=== PATIENT | female | born 1940 | race Caucasian/White ===

== ENCOUNTER 2017-01-06 13:42 | Inpatient (IN) | payer MEDICARE, BC ==
[2017-01-06] MEDS ORDERED: ACETAMINOPHEN TAB 500 MG TAB PO STA (14:23)
[2017-01-06] MEDS ORDERED: PIPERACILLIN-TAZOBACTAM 3.375 GM in DEXTROSE/WATER 1 50ML.BAG IVPB STA (14:27)
--- NOTE | 2017-01-06 14:32 | ED ---
General Adult HPI - General Chief complaint: GI Bleed Stated complaint: GI BLEED Time Seen by Provider: 01/06/17 14:02 Source: patient, EMS, RN notes reviewed Mode of arrival: EMS Limitations: no limitations - History of Present Illness Initial comments: Patient is a pleasant 76-year-old female presenting to the emergency department with complaints of diarrhea. Patient was seen at [place] [facility]. Patient did have evaluation there. Patient was found to have GI bleed and hemoglobin of 7.6. Patient was given 1 unit. Computed tomography scan was done and reported no mass. Review of report has concern for colitis. Patient states she had nausea and vomiting for several days a week or 2 ago. This completely resolved. Patient has had extensive diarrhea for the past 4 days. Patient is fatigued and generally weak and is difficult to get up and perform activities of daily living. No significant abdominal pain. No nausea vomiting however patient has had limited oral intake. Patient has had chills however is unclear whether or not she could've had fevers. No reported fever from [facility]. - Related Data Home Medications Medication Instructions Recorded Confirmed Atorvastatin [Lipitor] 20 mg PO HS 01/06/17 01/06/17 Cetirizine HCl [Zyrtec] 10 mg PO HS 01/06/17 01/06/17 Glucosamine/Chondr [place] A Sod [Osteo 1 tab PO DAILY 01/06/17 01/06/17 Bi-Flex Caplet] HYDROcodone/APAP 5-325MG [[place] 1 tab PO Q6H PRN 01/06/17 01/06/17 5-325] Lisinopril [Zestril] 20 mg PO DAILY 01/06/17 01/06/17 Multivitamins, Thera [Multivitamin 1 tab PO DAILY 01/06/17 01/06/17 (formulary)] Omeprazole 20 mg PO DAILY 01/06/17 01/06/17 Triamterene/Hydrochlorothiazid 1 tab PO DAILY 01/06/17 01/06/17 [Triamterene-Hctz 37.5-25 mg Tb] Verapamil HCl [Verelan] 360 mg PO DAILY 01/06/17 01/06/17 Allergies Allergy/AdvReac Type Severity Reaction Status Date / Time No Known Allergies Allergy Unverified 01/06/17 14:32 Review of Systems ROS Statement: Those systems with pertinent positive or pertinent negative responses have been documented in the HPI. ROS Other: All systems not noted in ROS Statement are negative. Constitutional: Reports: chills Eyes: Denies: eye pain ENT: Denies: ear pain Respiratory: Denies: cough Cardiovascular: Denies: chest pain Endocrine: Reports: fatigue Gastrointestinal: Reports: diarrhea. Denies: abdominal pain Genitourinary: Denies: dysuria Musculoskeletal: Denies: back pain Skin: Denies: rash Neurological: Reports: weakness (Generalized) Past Medical History Past Medical History: Hyperlipidemia, Hypertension History of Any Multi-Drug Resistant Organisms: None Reported Past Surgical History: Orthopedic Surgery Past Psychological History: No Psychological Hx Reported Smoking Status: Never smoker Past Alcohol Use History: None Reported Past Drug Use History: None Reported General Exam Limitations: no limitations General appearance: alert, in no apparent distress Head exam: Present: atraumatic Eye exam: Present: normal appearance, PERRL ENT exam: Present: mucous membranes dry Neck exam: Present: normal inspection Respiratory exam: Present: normal lung sounds bilaterally Cardiovascular Exam: Present: tachycardia GI/Abdominal exam: Present: soft. Absent: distended, tenderness Extremities exam: Present: normal inspection Neurological exam: Present: alert Psychiatric exam: Present: normal affect, normal mood Skin exam: Present: normal color Course Vital Signs 01/06/17 13:45 Temperature 100.6 F H Pulse Rate 120 H Respiratory 22 Rate Blood Pressure 125/69 O2 Sat by Pulse 98 Oximetry - Reevaluation(s) Reevaluation #1: 01/06/17 14:35 Patient does meet sepsis criteria diagnosed at 1435. This is based on and normal vital signs and fever and elevated white blood cell count. Patient does have lactic acid of 3.1. It is unclear at this time if fever is secondary to transfusion or infectious process related with colitis. Patient has been started on Zosyn. Case is discussed in detail with Dr. Medrano, who will admit for hospital call. EKG Findings - EKG Comments: EKG Findings:: Sinus tachycardia 120. MA 152. QRS 78. QT 324. QTC 47. Left axis. Normal QRS. No acute ST change. Medical Decision Making - Lab Data Result diagrams: 01/06/17 14:24 01/06/17 14:24 Lab Results 01/06/17 01/06/17 01/06/17 Range/Units 14:24 14:24 14:24 WBC 9.5 (3.8-10.6) k/uL RBC 2.57 L (3.80-5.40) m/uL Hgb 8.0 L (11.4-16.0) gm/dL Hct 24.2 L (34.0-46.0) % MCV 94.5 (80.0-100.0) fL MCH 31.0 (25.0-35.0) pg MCHC 32.8 (31.0-37.0) g/dL RDW 17.2 H (11.5-15.5) % Plt Count 321 (150-450) k/uL Neutrophils % 78 % Lymphocytes % 15 % Monocytes % 5 % Eosinophils % 0 % Basophils % 0 % Neutrophils # 7.4 (1.3-7.7) k/uL Lymphocytes # 1.4 (1.0-4.8) k/uL Monocytes # 0.5 (0-1.0) k/uL Eosinophils # 0.0 (0-0.7) k/uL Basophils # 0.0 (0-0.2) k/uL Anisocytosis Slight PT 11.0 (9.0-12.0) sec INR 1.1 (<1.2) APTT 18.6 L (22.0-30.0) sec Sodium 143 (137-145) mmol/L Potassium 3.8 (3.5-5.1) mmol/L Chloride 113 H (98-107) mmol/L Carbon Dioxide 17 L (22-30) mmol/L Anion Gap 13 mmol/L BUN 62 H (7-17) mg/dL Creatinine 1.05 H (0.52-1.04) mg/dL Est GFR (MDRD) Af Amer >60 (>60 ml/min/1.73 sqM) Est GFR (MDRD) Non-Af 51 (>60 ml/min/1.73 sqM) Glucose 113 H (74-99) mg/dL Calcium 9.4 (8.4-10.2) mg/dL Total Bilirubin 0.2 (0.2-1.3) mg/dL AST 16 (14-36) U/L ALT 25 (9-52) U/L Alkaline Phosphatase 52 (38-126) U/L Total Protein 5.9 L (6.3-8.2) g/dL Albumin 3.4 L (3.5-5.0) g/dL - Radiology Data Radiology results: image reviewed (Chest x-ray shows no acute process.) Critical Care Time Critical Care Time: Yes Total Critical Care Time: 33 Disposition Clinical Impression: GI hemorrhage, Sepsis, Diarrhea Disposition: ADMITTED IP TO THIS [facility] Decision Time: 15:21
[2017-01-06] MEDS ORDERED: NALOXONE 0.4 MG/ML 1 ML VIAL IV PRN ×2 (14:36→16:03)
[2017-01-06 14:45] LABS: Appearance,Urine Clear (Clear); Bilirubin,Urine Negative (Negative); Glucose,Urine (UA) Negative (Negative); Ketones,Urine Negative (Negative); Leukocyte Esterase,Urine Negative (Negative); Nitrite,Urine Negative (Negative); PH, Urine 5.5 (5.0-8.0); Protein,Urine Negative (Negative); Specific Gravity,Urine 1.016 (1.001-1.035); UA Billing (MACRO vs. MICRO) CHEM; Urobilinogen,Urine <2.0 mg/dL (<2.0)
[2017-01-06 14:54] LABS: Anisocytosis Slight; Basophils % (A) 0 %; CH 31.4; CHCM 33.5; Eosinophils % (A) 0 %; HCT 24.2 % (34.0-46.0); HDW 3.02; Luc # (Auto) 0.13; Luc % (Auto) 1; Lymphocytes # (A) 1.4 k/uL (1.0-4.8); Lymphocytes % (A) 15 %; MCHC 32.8 g/dL (31.0-37.0); MCV 94.5 fL (80.0-100.0); Mean Platelet Volume 7.3; Monocytes # (A) 0.5 k/uL (0-1.0); Monocytes % (A) 5 %; Neutrophils # (A) 7.4 k/uL (1.3-7.7); Neutrophils % (A) 78 %; RBC 2.57 m/uL (3.80-5.40); RDW 17.2 % (11.5-15.5); WBC 9.5 k/uL (3.8-10.6)
[2017-01-06 15:03] LABS: INR 1.1 (<1.2)
[2017-01-06 15:04] LABS: ALT 25 U/L (9-52); AST 16 U/L (14-36); Alkaline Phosphatase 52 U/L (38-126); Anion Gap 13 mmol/L; Blood Urea Nitrogen 62 mg/dL (7-17); Calcium 9.4 mg/dL (8.4-10.2); Carbon Dioxide 17 mmol/L (22-30); Chloride 113 mmol/L (98-107); Glucose 113 mg/dL (74-99); Non-African American GFR(MDRD) 51 (>60 ml/min/1.73 sqM); Potassium 3.8 mmol/L (3.5-5.1); Sodium 143 mmol/L (137-145); Total Bilirubin 0.2 mg/dL (0.2-1.3); Total Protein 5.9 g/dL (6.3-8.2)
[2017-01-06 15:12] LABS: Partial Thromboplastin Time 18.6 sec (22.0-30.0)
--- NOTE | 2017-01-06 15:13 | XR ---
EXAMINATION TYPE: XR chest 2V DATE OF EXAM: 01/06/2017 COMPARISON: NONE HISTORY: Fever TECHNIQUE: Frontal and lateral views of the chest are obtained. FINDINGS: There is chronic parenchymal change without suspicious focal air space opacity, pleural ef fusion, or pneumothorax seen. The cardiac silhouette size is upper limits of normal. 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 Bridging osteophytes in the thoracic spine are present. IMPRESSION: No suspicious acute infiltrate is present.
[2017-01-06] MEDS: PANTOPRAZOLE 40 MG/10 ML VIAL IV SCH (15:14)
[2017-01-06] MEDS: SODIUM CHLORIDE 0.9% 500 ML IV SCH (15:15)
[2017-01-06] MEDS: HYDROcodone/APAP 5-325MG 1 EACH TAB PO PRN ×2 (15:37→23:09)
[2017-01-06] MEDS ORDERED: ONDANSETRON 4 MG/2 ML VIAL IVP PRN (16:03)
[2017-01-06] MEDS ORDERED: MORPHINE SULFATE 2 MG/ML SYRINGE IV PRN (16:03)
--- NOTE | 2017-01-06 16:12 | P.HPIM ---
History of Present Illness H&P Date: 01/06/17 Chief Complaint: transferred from [facility] the patient is a 76-year-old female was transferred here from [facility] after she presented there earlier today with chief complaints of 4 days of diarrhea and nausea she denied any abdominal pain, but she reports several episodes of black tarry diarrhea. She also reports increasing fatigue weakness subjective fevers chills night sweats, and feeling lightheaded. 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 The patient denies completing the course of Coumadin and reports that she has 2 days with left. She reports being given preoperative and perioperative antibiotics. She also reports that her daughter and grandchildren also had a GI viral type illness with multiple family members having episodes of diarrhea and muscle aches. In the ER at [place] she was noted to have a hemoglobin of [address] abdomen and pelvis consistent with a mild colitis, she was typed and cross and transfuse 1 unit and transferred here to [facility]. review of records indicate a CT abdomen and pelvis done showed no ascites pneumoperitoneum or pneumatosis no portal vein gas radiologic findings and equivocal wall thickening there is possible distal transverse colon changes suggestive of colitis Review of Systems Constitutional: Patient reports fever chills, no weight changes, no change in appetite Eyes: Patient reports no double vision, no visual changes ENT: Patient reports no rhinorrhea, no post nasal drip, no sore throat Cardiovascular: Patient reports no chest, no edema, no palpitations, no syncope , no orthopnea, no paroxysmal nocturnal dyspnea. Respiratory: Patient reports no dyspnea, no cough, no wheeze Gastrointestinal: Patient reports no nausea, no vomiting, reports diarrhea, melena Genitourinary: Patient reports no dysuria, no urinary frequency, no hematuria. Musculoskeletal: Patient reports no unusual joint pain, no joint swelling or weakness. Patient reports no muscular pain. Psychiatric: Patient reports no changes in mood, no sleeping problems. Patient reports no changes in memory. Endocrine: Patient reports no thirst, no polyuria, no cold intolerance, no heat intolerance. Neurological: Patient reports no unusual paresthesias, no seizures, no paresis , no paralysis, no facial droop, no headache. reports lightheadedness Heme/Lymphatic: Patient reports no easy bruising, no bleeding tendency, no lymphadenopathy. Allergic/ Immunologic: Patient reports no recent allergic reactions or immunologic history. Skin: Patient reports no rashes or unusual lesions. Past Medical History Past Medical History: Hyperlipidemia, Hypertension History of Any Multi-Drug Resistant Organisms: None Reported Past Surgical History: Orthopedic Surgery Past Psychological History: No Psychological Hx Reported Smoking Status: Never smoker Past Alcohol Use History: None Reported Past Drug Use History: None Reported - Past Family History Mother Family Medical History: Cancer, Coronary Artery Disease (CAD) Father Family Medical History: Coronary Artery Disease (CAD) Medications and Allergies Home Medications Medication Instructions Recorded Confirmed Type Atorvastatin [Lipitor] 20 mg PO HS 01/06/17 01/06/17 History Cetirizine HCl [Zyrtec] 10 mg PO HS 01/06/17 01/06/17 History Glucosamine/Chondr [place] A Sod [Osteo 1 tab PO DAILY 01/06/17 01/06/17 History Bi-Flex Caplet] HYDROcodone/APAP 5-325MG [[place] 1 tab PO Q6H PRN 01/06/17 01/06/17 History 5-325] Lisinopril [Zestril] 20 mg PO DAILY 01/06/17 01/06/17 History Multivitamins, Thera [Multivitamin 1 tab PO DAILY 01/06/17 01/06/17 History (formulary)] Omeprazole 20 mg PO DAILY 01/06/17 01/06/17 History Triamterene/Hydrochlorothiazid 1 tab PO DAILY 01/06/17 01/06/17 History [Triamterene-Hctz 37.5-25 mg Tb] Verapamil HCl [Verelan] 360 mg PO DAILY 01/06/17 01/06/17 History Allergies Allergy/AdvReac Type Severity Reaction Status Date / Time No Known Allergies Allergy Unverified 01/06/17 14:32 Physical Exam Vitals: Vital Signs Temp Pulse Resp BP Pulse Ox 01/06/17 15:32 98 F 110 H 20 113/56 98 01/06/17 13:45 100.6 F H 120 H 22 125/69 98 Intake and Output 01/06/17 01/06/17 01/06/17 06:59 14:59 22:59 Other: Weight 81.647 kg Patient Weight 01/07/17 06:59 Weight 81.647 kg Constitutional: No acute distress, conversant, pleasant Eyes: Anicteric sclerae, moist conjunctiva, no lid-lag, PERRLA ENMT: NC/AT,Oropharynx clear, no erythema, exudates Neck:Supple, FROM, no masses, or JVD, No carotid bruits; No thyromegaly Lungs: Clear to auscultation, Clear to percussion, Normal respiratory effort, no accessory muscle use Cardiovascular: Heart regular in rate and rhythm, No murmurs, gallops, or rubs no peripheral edema Abdominal: Soft Nontender, nom distended, no guarding, no rebound or rigidity, Normoactive bowel sounds No hepatomegaly, No splenomegaly, No palpable mass No abdominal wall hernia noted Skin: Normal temperature, tone, texture, turgor, No induration No subcutaneous nodules, No rash, lesions, No ulcers Extremities:No digital cyanosis No clubbing, Pedal pulses intact and symmetrical Radial pulses intact and symmetrical Normal gait and station, No calf tenderness Psychiatric: Alert and oriented to person, place and time, Appropriate affect Intact judgement Neuro: Muscles Strength 5/5 in all 4 extremities, Sensation to light touch grossly present throughout, Cranial nerves II-XII grossly intact. No focal sensory deficits Results CBC & Chem 7: 01/06/17 14:24 01/06/17 14:24 Labs: Abnormal Lab Results - Last 24 Hours (Table) 01/06/17 01/06/17 01/06/17 Range/Units 14:24 14:24 14:24 RBC 2.57 L (3.80-5.40) m/uL Hgb 8.0 L (11.4-16.0) gm/dL Hct 24.2 L (34.0-46.0) % RDW 17.2 H (11.5-15.5) % APTT (22.0-30.0) sec Chloride 113 H (98-107) mmol/L Carbon Dioxide 17 L (22-30) mmol/L BUN 62 H (7-17) mg/dL Creatinine 1.05 H (0.52-1.04) mg/dL Glucose 113 H (74-99) mg/dL Plasma Lactic Acid [place] 2.6 H* (0.7-2.0) mmol/L Total Protein 5.9 L (6.3-8.2) g/dL Albumin 3.4 L (3.5-5.0) g/dL 01/06/17 Range/Units 14:24 RBC (3.80-5.40) m/uL Hgb (11.4-16.0) gm/dL Hct (34.0-46.0) % RDW (11.5-15.5) % APTT 18.6 L (22.0-30.0) sec Chloride (98-107) mmol/L Carbon Dioxide (22-30) mmol/L BUN (7-17) mg/dL Creatinine (0.52-1.04) mg/dL Glucose (74-99) mg/dL Plasma Lactic Acid [place] (0.7-2.0) mmol/L Total Protein (6.3-8.2) g/dL Albumin (3.5-5.0) g/dL Assessment and Plan (1) GI hemorrhage Status: Acute (2) Symptomatic anemia Status: Acute (3) Sepsis Status: Acute (4) Colitis Status: Acute (5) Diarrhea Status: Acute Plan: the patient is admitted to the medical floor anticipated greater than 2 midnight stay with symptomatic anemia secondary to GI bleed hemoglobin now is 8 we'll type and cross and transfuse 2 more units as a patient is still tachycardic also with elevated serum lactate at 3.1. We'll start on empiric IV antibiotics with Zosyn to treat her colitis and we'll also consult GI for further recommendations. We'll continue her on a clear liquid diet supportive therapy with antiemetics, we'll continue workup by check and C. diff, stool studies ova and parasites WBCs. we'll continue IV fluids normal saline at 125 mL an hour. Trend CBC. Continue to follow her clinical course.
[2017-01-06] MEDS: SODIUM CHLORIDE 0.9% 1,000 ML IV SCH (16:38)
[2017-01-07] MEDS: SODIUM CHLORIDE 0.9% 1,000 ML IV SCH ×4 (00:23→16:13)
[2017-01-07] MEDS: PIPERACILLIN-TAZOBACTAM 3.375 GM in DEXTROSE/WATER 1 50ML.BAG IVPB SCH ×4 (01:28→23:37)
[2017-01-07 07:37] LABS: Anisocytosis Slight; Basophils # (A) 0.1 k/uL (0-0.2); Basophils % (A) 1 %; CH 31.2; CHCM 33.5; Eosinophils % (A) 0 %; HCT 25.6 % (34.0-46.0); HDW 3.31; HGB 8.2 gm/dL (11.4-16.0); Luc # (Auto) 0.13; Luc % (Auto) 2; Lymphocytes # (A) 1.3 k/uL (1.0-4.8); Lymphocytes % (A) 16 %; MCH 30.3 pg (25.0-35.0); MCHC 32.1 g/dL (31.0-37.0); MCV 94.2 fL (80.0-100.0); Macrocytosis Slight; Mean Platelet Volume 7.2; Monocytes # (A) 0.6 k/uL (0-1.0); Monocytes % (A) 8 %; Neutrophils # (A) 6.1 k/uL (1.3-7.7); Neutrophils % (A) 74 %; RBC 2.71 m/uL (3.80-5.40); RDW 19.3 % (11.5-15.5); WBC 8.2 k/uL (3.8-10.6); WBC (Perox) 8.08
[2017-01-07] MEDS: PANTOPRAZOLE 40 MG/10 ML VIAL IV SCH (09:01)
--- NOTE | 2017-01-07 10:09 | P.PN ---
Subjective Progress Note Date: 01/07/17 Principal diagnosis: Diarrhea with dark stools 76-year-old female that was transferred here from [place] where she was admitted with symptoms of abdominal pain diarrhea and dark stools. Patient had blood loss anemia patient has been transfused 2 units of packed RBCs. At [place] her hemoglobin was [address] was consistent with colitis. Today patient reports continued episodes of diarrhea with dark stools. she does complain of cramping with oral intake, diarrhea is worse with oral intake. Denies any fever or chills at this time denies any chest pains Objective - Vital Signs Vital signs: Vital Signs Temp 98.0 F 01/07/17 08:00 Pulse 102 H 01/07/17 08:00 Resp 18 01/07/17 08:00 BP 115/84 01/07/17 08:00 Pulse Ox 95 01/07/17 08:00 Intake & Output 01/06/17 01/07/17 01/07/17 18:59 06:59 18:59 Intake Total 1570 222 Output Total 400 Balance 1170 222 Weight 81.647 kg 82.3 kg Intake: Intake, IV Titration 500 Amount Sodium Chloride 0.9% 1, 500 000 ml @ 125 mls/hr IV . Q8H [facility] Rx#:[id number] Oral 222 Blood Product 1070 Rc As-1 Unit 310 [id number] Rc As-1 Unit 310 [id number] Output: Urine 400 Other: Voiding Method Bedside Commode Bedside Commode # Bowel Movements 6 - Exam gen:alert and oriented lungs:clear to auscultation heart:s1s2 abdomen:soft and depressible,non tender to palpation ext:no edema - Labs CBC & Chem 7: 01/07/17 06:51 01/06/17 14:24 Labs: Abnormal Lab Results - Last 24 Hours (Table) 01/06/17 01/06/17 01/06/17 Range/Units 14:24 14:24 14:24 RBC 2.57 L (3.80-5.40) m/uL Hgb 8.0 L (11.4-16.0) gm/dL Hct 24.2 L (34.0-46.0) % RDW 17.2 H (11.5-15.5) % APTT (22.0-30.0) sec Chloride 113 H (98-107) mmol/L Carbon Dioxide 17 L (22-30) mmol/L BUN 62 H (7-17) mg/dL Creatinine 1.05 H (0.52-1.04) mg/dL Glucose 113 H (74-99) mg/dL Plasma Lactic Acid [place] 2.6 H* (0.7-2.0) mmol/L Total Protein 5.9 L (6.3-8.2) g/dL Albumin 3.4 L (3.5-5.0) g/dL Crossmatch 01/06/17 01/06/17 01/06/17 Range/Units 14:24 16:42 19:42 RBC (3.80-5.40) m/uL Hgb (11.4-16.0) gm/dL Hct (34.0-46.0) % RDW (11.5-15.5) % APTT 18.6 L (22.0-30.0) sec Chloride (98-107) mmol/L Carbon Dioxide (22-30) mmol/L BUN (7-17) mg/dL Creatinine (0.52-1.04) mg/dL Glucose (74-99) mg/dL Plasma Lactic Acid [place] 3.6 H* (0.7-2.0) mmol/L Total Protein (6.3-8.2) g/dL Albumin (3.5-5.0) g/dL Crossmatch See Detail 01/07/17 Range/Units 06:51 RBC 2.71 L (3.80-5.40) m/uL Hgb 8.2 L (11.4-16.0) gm/dL Hct 25.6 L (34.0-46.0) % RDW 19.3 H (11.5-15.5) % APTT (22.0-30.0) sec Chloride (98-107) mmol/L Carbon Dioxide (22-30) mmol/L BUN (7-17) mg/dL Creatinine (0.52-1.04) mg/dL Glucose (74-99) mg/dL Plasma Lactic Acid [place] (0.7-2.0) mmol/L Total Protein (6.3-8.2) g/dL Albumin (3.5-5.0) g/dL Crossmatch Microbiology - Last 24 Hours (Table) 01/06/17 15:02 Stool Culture - Preliminary Stool 01/06/17 14:39 Urine Culture - Preliminary Urine,Catheterized Assessment and Plan (1) Colitis Narrative/Plan: Currently on IV Currently symptomatic with diarrhea and dark stools Awaiting GI input Status: Acute (2) Blood loss anemia Narrative/Plan: Status post transfusion of 2 units of packed RBC Hemoglobin posttransfusion is 8.2 Continue H&H every 6 hours Status: Acute (3) Hypertension Narrative/Plan: Blood pressure currently stable Verapamil triamterene hydrochlorothiazide and lisinopril are currently on hold Status: Acute (4) Hyperlipidemia Narrative/Plan: On Lipitor Status: Acute Plan: Will continue to monitor her hemoglobin and hematocrit closely only GI input. She did have a colonoscopy 1 year ago we'll try to obtain previous records from [place].
[2017-01-07 13:44] LABS: Anisocytosis Slight; Basophils # (A) 0.1 k/uL (0-0.2); Basophils % (A) 1 %; CHCM 33.4; Eosinophils # (A) 0.1 k/uL (0-0.7); Eosinophils % (A) 1 %; HCT 25.4 % (34.0-46.0); HDW 3.39; HGB 8.4 gm/dL (11.4-16.0); Luc # (Auto) 0.16; Luc % (Auto) 2; Lymphocytes # (A) 1.8 k/uL (1.0-4.8); Lymphocytes % (A) 21 %; MCH 29.9 pg (25.0-35.0); MCV 90.5 fL (80.0-100.0); Monocytes # (A) 0.7 k/uL (0-1.0); Monocytes % (A) 8 %; Neutrophils # (A) 5.8 k/uL (1.3-7.7); Neutrophils % (A) 68 %; RBC 2.81 m/uL (3.80-5.40); RDW 18.2 % (11.5-15.5); WBC 8.6 k/uL (3.8-10.6); WBC (Perox) 8.73
[2017-01-07 14:25] LABS: Manual Review Performed
[2017-01-07 14:26] LABS: Polychromasia Present
[2017-01-07] MEDS: HYDROcodone/APAP 5-325MG 1 EACH TAB PO PRN (14:29)
[2017-01-07 18:04] LABS: Anisocytosis Slight; Basophils # (A) 0.1 k/uL (0-0.2); Basophils % (A) 1 %; CH 29.8; CHCM 32.8; Eosinophils # (A) 0.1 k/uL (0-0.7); Eosinophils % (A) 1 %; HCT 23.9 % (34.0-46.0); HDW 3.48; HGB 7.7 gm/dL (11.4-16.0); Hypochromasia Slight; Luc # (Auto) 0.21; Luc % (Auto) 3; Lymphocytes # (A) 2.3 k/uL (1.0-4.8); Lymphocytes % (A) 28 %; MCH 29.7 pg (25.0-35.0); MCHC 32.3 g/dL (31.0-37.0); MCV 91.7 fL (80.0-100.0); Mean Platelet Volume 6.9; Monocytes # (A) 0.6 k/uL (0-1.0); Monocytes % (A) 7 %; Neutrophils # (A) 4.9 k/uL (1.3-7.7); Neutrophils % (A) 61 %; Poikilocytosis Slight; RBC 2.61 m/uL (3.80-5.40); RDW 18.2 % (11.5-15.5); WBC 8.1 k/uL (3.8-10.6); WBC (Perox) 8.01
[2017-01-07 23:45] LABS: Anisocytosis Slight; CH 31.2; CHCM 33.8; HCT 23.8 % (34.0-46.0); HDW 3.44; HGB 7.7 gm/dL (11.4-16.0); MCH 30.4 pg (25.0-35.0); MCHC 32.5 g/dL (31.0-37.0); MCV 93.4 fL (80.0-100.0); Macrocytosis Slight; Mean Platelet Volume 7.6; Poikilocytosis Slight; RBC 2.55 m/uL (3.80-5.40); RDW 19.9 % (11.5-15.5); WBC 6.8 k/uL (3.8-10.6); WBC (Perox) 7.01
[2017-01-08 00:22] LABS: Add Differential Manual Differential
[2017-01-08 00:28] LABS: Manual Review Performed; Myelocytes % 2 %; Nucleated Red Blood Cells 0 /100 WBC (0-0); Polychromasia Present; Total Cells Counted 200
[2017-01-08 06:43] LABS: Anisocytosis Slight; Basophils # (A) 0.1 k/uL (0-0.2); Basophils % (A) 2 %; CH 30.7; CHCM 32.9; Eosinophils # (A) 0.1 k/uL (0-0.7); Eosinophils % (A) 1 %; HCT 23.3 % (34.0-46.0); HDW 3.41; HGB 7.4 gm/dL (11.4-16.0); Luc # (Auto) 0.13; Luc % (Auto) 2; Lymphocytes # (A) 1.8 k/uL (1.0-4.8); Lymphocytes % (A) 32 %; MCH 30.2 pg (25.0-35.0); MCHC 31.9 g/dL (31.0-37.0); MCV 94.6 fL (80.0-100.0); Macrocytosis Slight; Mean Platelet Volume 7.3; Monocytes # (A) 0.4 k/uL (0-1.0); Monocytes % (A) 7 %; Neutrophils # (A) 3.2 k/uL (1.3-7.7); Neutrophils % (A) 56 %; Poikilocytosis Slight; RBC 2.46 m/uL (3.80-5.40); RDW 19.7 % (11.5-15.5); WBC 5.7 k/uL (3.8-10.6); WBC (Perox) 5.61
--- NOTE | 2017-01-08 07:39 | P.PN ---
Subjective Progress Note Date: 01/08/17 Principal diagnosis: Diarrhea with dark stools 76-year-old female that was transferred here from [place] where she was admitted with symptoms of abdominal pain diarrhea and dark stools. Patient had blood loss anemia patient has been transfused 2 units of packed RBCs. At [place] her hemoglobin was [address] was consistent with colitis. Today patient reports continued episodes of diarrhea with dark stools. Even though she thinks this less frequent today. No fever no chills Objective - Vital Signs Vital signs: Vital Signs Temp 97 F L 01/08/17 04:00 Pulse 102 H 01/08/17 04:00 Resp 19 01/08/17 04:00 BP 136/69 01/08/17 04:00 Pulse Ox 98 01/08/17 04:00 Intake & Output 01/07/17 01/08/17 01/08/17 18:59 06:59 18:59 Intake Total 444 1290 Output Total 2100 Balance 444 -810 Weight 82.6 kg Intake: Intake, IV Titration 950 Amount Piperacillin-Tazobactam 3 50 .375 gm In Dextrose/Water 1 50ml.bag @ 12.5 mls/hr IVPB Q8HR [facility] Rx#: [id number] Sodium Chloride 0.9% 1, 900 000 ml @ 75 mls/hr IV . [id number] [facility] Rx#:[id number] Oral 444 340 Output: Urine 2000 Stool 100 Other: Voiding Method Bedside Commode Bedside Commode # Bowel Movements 5 3 - Exam gen:alert and oriented lungs:clear to auscultation heart:s1s2 abdomen:soft and depressible,non tender to palpation ext:no edema - Labs CBC & Chem 7: 01/11/17 06:23 01/11/17 06:23 Labs: Abnormal Lab Results - Last 24 Hours (Table) 01/07/17 01/07/17 01/07/17 Range/Units 06:51 11:50 17:51 RBC 2.71 L 2.81 L 2.61 L (3.80-5.40) m/uL Hgb 8.2 L 8.4 L 7.7 L (11.4-16.0) gm/dL Hct 25.6 L 25.4 L 23.9 L (34.0-46.0) % RDW 19.3 H 18.2 H 18.2 H (11.5-15.5) % Myelocytes # (Manual) (0) k/uL 01/07/17 01/08/17 Range/Units 23:33 06:12 RBC 2.55 L 2.46 L (3.80-5.40) m/uL Hgb 7.7 L 7.4 L (11.4-16.0) gm/dL Hct 23.8 L 23.3 L (34.0-46.0) % RDW 19.9 H 19.7 H (11.5-15.5) % Myelocytes # (Manual) 0.14 H (0) k/uL Microbiology - Last 24 Hours (Table) 01/06/17 14:39 Urine Culture - Final Urine,Catheterized 01/06/17 14:24 Blood Culture - Preliminary Blood No Growth after 24 hours 01/06/17 15:02 Stool for WBCs - Final Stool Assessment and Plan (1) Colitis Narrative/Plan: Currently on IV antibiotics Currently symptomatic with diarrhea and dark stools Awaiting GI input Will order stool cultures today Status: Acute (2) Blood loss anemia Narrative/Plan: Status post transfusion of 2 units of packed RBC yesterday Hemoglobin 7.4 today Continue H&H every 6 hours We'll transfuse if hemoglobin less than 7 Status: Acute (3) Hypertension Narrative/Plan: Blood pressure currently stable Verapamil triamterene hydrochlorothiazide and lisinopril are currently on hold Status: Acute (4) Hyperlipidemia Narrative/Plan: On Lipitor Status: Acute Plan: Will continue to monitor her hemoglobin and hematocrit closely awaiting GI input. She did have a colonoscopy 1 year ago we'll try to obtain previous records from [place].
[2017-01-08] MEDS: PIPERACILLIN-TAZOBACTAM 3.375 GM in DEXTROSE/WATER 1 50ML.BAG IVPB SCH ×3 (08:54→23:57)
[2017-01-08] MEDS: SODIUM CHLORIDE 0.9% 1,000 ML IV SCH (08:54)
[2017-01-08] MEDS: PANTOPRAZOLE 40 MG/10 ML VIAL IV SCH (08:55)
--- NOTE | 2017-01-08 09:57 | P.CONS ---
History of Present Illness - Reason for Consult Consult date: 01/08/17 GI bleed melena and anemia Requesting physician: Rohith Zamora - History of Present Illness 76-year-old female status post right total knee arthroplasty mid November 2016 transferred from [facility] this past weekend with chief complaint of abdominal bloatedness lightheadedness decreased appetite and dark-colored diarrhea intermittently x 1 month. Hemoglobin at [place] was in the 7 range and transfused 1 units of blood. She developed black colored loose bowel movements 2-3 days after discharge from her knee surgery. She was placed on Coumadin for 10 days postop and only took it for about a week but continued her daily baby aspirin. CT abdomen and pelvis at [place] suggestive of distal transverse colitis. No history of GI bleed. Last EGD 3 years ago for assessment of GERD. Last colonoscopy 2 years ago to her memory was normal. Upon transfer to [facility] she received 2 additional units of blood on Saturday. Transfer hemoglobin was 8.0 presently 7.4. Patient was passing looser black colored bowel movements last night. Denies hematemesis or hematochezia. No weight loss. No fever. No NSAIDs. No alcohol. MCV 94. Platelet 253. INR 1.1. Hemoccult stool positive. BUN 62. Creatinine 1.0. White count 5.7-9.5. Giardia antigen stool negative. T-max 100.6 on admission. Review of Systems Constitutional: Denies fever, chills, sweats, weight gain, or loss. HEENT: Negative for migraines, blurred vision or loss, earaches, drainage, tinnitus, oral mucosal lesions, dysphagia, or odynophagia. CARDIAC: Hyperlipidemia. Hypertension. Negative for chest pain, arrhythmias, or palpitation. RESPIRATORY: Negative for shortness of breath, hemoptysis, cough, or sputum production. GI: See HPI for pertinent findings. : Negative for hematuria, urgency, frequency, polyuria, or dysuria. GYNc: Denies possibility of . Negative vaginal discharge. MUSCULOSKELETAL: Osteoarthritis. Negative for muscle aches, swelling, arthritis , and arthralgias. NEUROLOGIC: Negative for stroke or TIA. ENDOCRINE: Negative for thyroid problems. SKIN: Negative for rash or itching. PSYCHIATRIC: Negative history for depression and anxiety All systems: negative (See HPI) Past Medical History Past Medical History: Hyperlipidemia, Hypertension History of Any Multi-Drug Resistant Organisms: None Reported Past Surgical History: Orthopedic Surgery Additional Past Surgical History / Comment(s): R KNEE REPLACEMENT, BACK SX, ILIANA ANKLE/FOOT RODS AND SCREWS. Past Anesthesia/Blood Transfusion Reactions: No Reported Reaction Past Psychological History: No Psychological Hx Reported Smoking Status: Never smoker Past Alcohol Use History: None Reported Past Drug Use History: None Reported - Past Family History Mother Family Medical History: Cancer, Coronary Artery Disease (CAD) Father Family Medical History: Coronary Artery Disease (CAD) Medications and Allergies Home Medications Medication Instructions Recorded Confirmed Type Atorvastatin [Lipitor] 20 mg PO HS 01/06/17 01/06/17 History Cetirizine HCl [Zyrtec] 10 mg PO HS 01/06/17 01/06/17 History Glucosamine/Chondr [place] A Sod [Osteo 1 tab PO DAILY 01/06/17 01/06/17 History Bi-Flex Caplet] HYDROcodone/APAP 5-325MG [Mcdonough 1 tab PO Q6H PRN 01/06/17 01/06/17 History 5-325] Lisinopril [Zestril] 20 mg PO DAILY 01/06/17 01/06/17 History Multivitamins, Thera [Multivitamin 1 tab PO DAILY 01/06/17 01/06/17 History (formulary)] Omeprazole 20 mg PO DAILY 01/06/17 01/06/17 History Triamterene/Hydrochlorothiazid 1 tab PO DAILY 01/06/17 01/06/17 History [Triamterene-Hctz 37.5-25 mg Tb] Verapamil HCl [Verelan] 360 mg PO DAILY 01/06/17 01/06/17 History Allergies Allergy/AdvReac Type Severity Reaction Status Date / Time No Known Allergies Allergy Unverified 01/06/17 14:32 Physical Exam Vitals: Vital Signs Temp Pulse Resp BP BP Pulse Ox 01/08/17 04:00 97 F L 102 H 19 136/69 98 01/07/17 23:46 105 H 20 01/07/17 23:43 97.9 F 105 H 20 137/83 96 01/07/17 20:00 97.2 F L 99 19 136/69 96 01/07/17 16:00 98.0 F 132 H 18 112/56 98 01/07/17 12:00 97.0 F L 108 H 18 128/67 98 Intake and Output 01/07/17 01/08/17 01/08/17 22:59 06:59 14:59 Intake Total 240 1050 600 Output Total 1300 800 Balance -1060 250 600 Intake: Intake, IV Titration 950 Amount Piperacillin-Tazobactam 3 50 .375 gm In Dextrose/Water 1 50ml.bag @ 12.5 mls/hr IVPB Q8HR [facility] Rx#: [id number] Sodium Chloride 0.9% 1, 900 000 ml @ 75 mls/hr IV . [id number] [facility] Rx#:[id number] Oral 240 100 600 Output: Urine 1300 700 Stool 100 Other: Voiding Method Bedside Commode Bedside Commode # Bowel Movements 4 3 Weight 82.6 kg General appearance: The patient is alert, oriented, in no acute distress. HET: Head is normocephalic and atraumatic. Pupils are equal and reactive. Oropharynx is clear without lesions. Neck: Supple without lymphadenopathy. Trachea midline. Heart: S1 S2. Regular rate and rhythm. Lungs: No crackles or wheezes are heard. Abdomen: Soft, nontender, mildly bloated with bowel sounds. No peritoneal signs. No palpable organomegaly or masses. Extremities: Normal skin color and turgor. No cyanosis, rash, ulceration, clubbing, or edema. Radial and pedal pulses are 2/4 bilaterally. Neurological: No focal deficits. Strength and sensation are grossly intact. Results CBC & Chem 7: 01/08/17 06:12 01/06/17 14:24 Labs: Abnormal Lab Results - Last 24 Hours (Table) 01/07/17 01/07/17 01/07/17 Range/Units 11:50 17:51 23:33 RBC 2.81 L 2.61 L 2.55 L (3.80-5.40) m/uL Hgb 8.4 L 7.7 L 7.7 L (11.4-16.0) gm/dL Hct 25.4 L 23.9 L 23.8 L (34.0-46.0) % RDW 18.2 H 18.2 H 19.9 H (11.5-15.5) % Myelocytes # (Manual) 0.14 H (0) k/uL 01/08/17 Range/Units 06:12 RBC 2.46 L (3.80-5.40) m/uL Hgb 7.4 L (11.4-16.0) gm/dL Hct 23.3 L (34.0-46.0) % RDW 19.7 H (11.5-15.5) % Myelocytes # (Manual) (0) k/uL Microbiology - Last 24 Hours (Table) 01/06/17 14:39 Urine Culture - Final Urine,Catheterized 01/06/17 14:24 Blood Culture - Preliminary Blood No Growth after 24 hours 01/06/17 15:02 Stool for WBCs - Final Stool Assessment and Plan (1) Melena Status: Acute (2) Acute blood loss anemia Status: Acute (3) Status post knee surgery Status: Acute (4) GI hemorrhage Status: Acute Plan: 1. EGD evaluation today. 2. CBC monitoring. 3. IV Protonix 40 mg daily. No NSAIDs or aspirin. The professor computer science has discussed the risks, benefits and alternative therapies for the above-mentioned procedure and for both sedation/analgesia as well as necessary blood product administration, if indicated, as they pertain to this patient. The patient has indicated understanding and acceptance of the risks and procedures discussed. Thank you for this kind referral and the opportunity to participate in the care of your patient. This consultation was discussed with Dr. Walker. The impression and plan of care have been directed as dictated.
[2017-01-08 11:59] LABS: Anisocytosis Slight; Aty Lym Flag Slight; CH 29.9; CHCM 32.7; HCT 24.7 % (34.0-46.0); HDW 3.41; HGB 7.8 gm/dL (11.4-16.0); Hypochromasia Slight; MCH 29.3 pg (25.0-35.0); MCHC 31.7 g/dL (31.0-37.0); MCV 92.3 fL (80.0-100.0); Mean Platelet Volume 7.2; Poikilocytosis Slight; RBC 2.67 m/uL (3.80-5.40); RDW 18.6 % (11.5-15.5); WBC 6.4 k/uL (3.8-10.6); WBC (Perox) 6.58
[2017-01-08 13:05] LABS: Add Differential Manual Differential
[2017-01-08 13:23] LABS: Myelocytes % 1 %; Nucleated Red Blood Cells 0 /100 WBC (0-0); Total Cells Counted 200
[2017-01-08 13:24] LABS: Manual Review Performed; Polychromasia Present
[2017-01-08] MEDS ORDERED: LIDOCAINE 1% INJ 10MG/ML (20 ML MDV) ONE (13:39)
[2017-01-08] MEDS ORDERED: PROPOFOL 10 MG/ML 20 ML VIAL IV ONE (13:39)
[2017-01-08] MEDS ORDERED: MIDAZOLAM 2 MG/2 ML VIAL ONE (13:39)
[2017-01-08] MEDS ORDERED: IV FLUID CONTINUATION 1,000 ML IV ONE (13:41)
[2017-01-08] MEDS ORDERED: LACTATED RINGERS 1,000 ML IV ONE (14:03)
--- NOTE | 2017-01-08 14:24 | P.PCN ---
Date of Procedure: 01/08/17 Procedure(s) Performed: Procedure: Esophagogastroduodenoscopy and biopsy. Preoperative diagnosis: GI bleeding and anemia. Postoperative diagnosis: 1. Small sliding hiatal hernia with no obvious esophagitis or complicated reflux disease. 2. Mild antral gastritis. 3. No ulcers, gastric outlet obstruction or bleeding. Preparation sedation: Was provided by anesthesia. Brief clinical history: The patient is a 76-year-old female status post right total knee arthroplasty mid November 2016 who was transferred from [facility] this past weekend with chief complaint of abdominal bloating, lightheadedness, decreased appetite and dark-colored diarrheic BM intermittently x 1 month. Hemoglobin at [place] was in the 7 range and she was transfused with 1 unit of blood. She developed black colored loose bowel movements 2-3 days after discharge following her knee surgery. She was placed on Coumadin for 10 days postop and only took it for about a week but continued her daily baby aspirin. CT abdomen and pelvis at [place] suggestive of distal transverse colitis. No history of GI bleed. Last EGD 3 years ago for assessment of GERD. Last colonoscopy 2 years ago to her memory was normal. Upon transfer to [facility] she received 2 additional units of blood on Saturday. Transfer hemoglobin was 8.0 which dropped to 7.4. Patient was still passing looser black colored bowel movements but denied hematemesis or hematochezia. No weight loss. No fever. No NSAIDs. No alcohol. MCV 94. Platelet 253. INR 1.1. Hemoccult stool positive. BUN 62. Creatinine 1.0. White count 5.7-9.5. Giardia antigen stool negative. T-max 100.6 on admission. Other details as summarized in the history and physical and dictated consultations and progress notes. This evaluation is to assess for peptic ulcer disease or other sources of upper GI bleeding. Procedure: With the patient on her left lateral decubitus position and after informed consent and adequate sedation, I passed the Olympus-GIF 160 video upper endoscope through the cricopharyngeus down the esophagus. GE junction was around 36 cm from the incisors and there was a small sliding hiatal hernia. The esophagus did not show any erosions, ulcers, strictures or Nation's esophagus. No mucosal tears, varices or bleeding. The endoscope was then passed into the stomach which was insufflated with air and inspected in detail including the retroflex view in the cardia. There was minimal erythema in the antrum but no ulcers or erosions. Pyloric channel did not show any ulcers. Duodenal bulb, post bulbar area and descending duodenum appeared within normal limits without any ulcers or bleeding. All secretions encountered in the esophagus, stomach or duodenum were clear or bilious in color. I obtained biopsies from the antrum before the endoscope was withdrawn. A repeat rectal exam showed dark greenish liquid the stools but no eliza blood or eliza melena. The patient tolerated the procedure well. Plan: The patient was reassured. Will allow liquid diet then advance to soft diet as tolerated. This exam rules out peptic ulcer disease or other upper GI sources to account her drop in her hemoglobin and dark stools. We could consider further investigation of her small bowel and colon depending on her course. Will continue to follow with you with interest.
[2017-01-08] MEDS: HYDROcodone/APAP 5-325MG 1 EACH TAB PO PRN (15:19)
[2017-01-08 17:55] LABS: Anisocytosis Slight; Basophils # (A) 0.1 k/uL (0-0.2); Basophils % (A) 1 %; CH 30.3; CHCM 32.7; Eosinophils # (A) 0.1 k/uL (0-0.7); Eosinophils % (A) 1 %; HCT 25.1 % (34.0-46.0); HDW 3.43; Hypochromasia Slight; Luc # (Auto) 0.26; Luc % (Auto) 3; Lymphocytes # (A) 2.5 k/uL (1.0-4.8); Lymphocytes % (A) 31 %; MCV 93.7 fL (80.0-100.0); Macrocytosis Slight; Mean Platelet Volume 7.3; Monocytes # (A) 0.6 k/uL (0-1.0); Monocytes % (A) 7 %; Neutrophils # (A) 4.5 k/uL (1.3-7.7); Neutrophils % (A) 56 %; Poikilocytosis Slight; RBC 2.68 m/uL (3.80-5.40); RDW 19.3 % (11.5-15.5); WBC 7.9 k/uL (3.8-10.6); WBC (Perox) 7.83
[2017-01-09 00:48] LABS: Anisocytosis Moderate; Basophils # (A) 0.1 k/uL (0-0.2); Basophils % (A) 1 %; CH 31.4; CHCM 33.7; Eosinophils # (A) 0.1 k/uL (0-0.7); Eosinophils % (A) 1 %; HCT 21.9 % (34.0-46.0); HDW 3.37; HGB 7.2 gm/dL (11.4-16.0); Luc # (Auto) 0.21; Luc % (Auto) 3; Lymphocytes # (A) 2.2 k/uL (1.0-4.8); Lymphocytes % (A) 31 %; MCH 30.8 pg (25.0-35.0); MCHC 32.8 g/dL (31.0-37.0); MCV 94.1 fL (80.0-100.0); Macrocytosis Slight; Mean Platelet Volume 7.1; Monocytes # (A) 0.6 k/uL (0-1.0); Monocytes % (A) 9 %; Neutrophils # (A) 3.9 k/uL (1.3-7.7); Neutrophils % (A) 55 %; RBC 2.33 m/uL (3.80-5.40); RDW 20.1 % (11.5-15.5); WBC 7.1 k/uL (3.8-10.6); WBC (Perox) 6.73
[2017-01-09 06:31] LABS: Anion Gap 8 mmol/L; Blood Urea Nitrogen 9 mg/dL (7-17); Calcium 8.7 mg/dL (8.4-10.2); Carbon Dioxide 20 mmol/L (22-30); Chloride 113 mmol/L (98-107); Glucose 92 mg/dL (74-99); Non-African American GFR(MDRD) 58 (>60 ml/min/1.73 sqM); Potassium 3.2 mmol/L (3.5-5.1); Sodium 141 mmol/L (137-145)
[2017-01-09] MEDS: SODIUM CHLORIDE 0.9% 1,000 ML IV SCH ×3 (06:36→23:05)
[2017-01-09 06:44] LABS: Anisocytosis Moderate; Basophils # (A) 0.1 k/uL (0-0.2); Basophils % (A) 1 %; CH 31.2; CHCM 33.4; Eosinophils # (A) 0.1 k/uL (0-0.7); Eosinophils % (A) 1 %; HCT 22.3 % (34.0-46.0); HDW 3.39; HGB 7.3 gm/dL (11.4-16.0); Luc # (Auto) 0.16; Luc % (Auto) 3; Lymphocytes # (A) 1.6 k/uL (1.0-4.8); Lymphocytes % (A) 28 %; MCHC 32.8 g/dL (31.0-37.0); MCV 94.3 fL (80.0-100.0); Macrocytosis Slight; Mean Platelet Volume 7.4; Monocytes # (A) 0.5 k/uL (0-1.0); Monocytes % (A) 9 %; Neutrophils # (A) 3.2 k/uL (1.3-7.7); Neutrophils % (A) 58 %; RBC 2.36 m/uL (3.80-5.40); RDW 20.4 % (11.5-15.5); WBC 5.5 k/uL (3.8-10.6); WBC (Perox) 5.74
[2017-01-09] MEDS: PANTOPRAZOLE 40 MG/10 ML VIAL IV SCH (09:05)
[2017-01-09] MEDS: PIPERACILLIN-TAZOBACTAM 3.375 GM in DEXTROSE/WATER 1 50ML.BAG IVPB SCH ×3 (09:05→23:04)
--- NOTE | 2017-01-09 10:24 | P.PN ---
Subjective Progress Note Date: 01/09/17 Principal diagnosis: Gi bleed Admitted with GI bleed anemia melena. S/p EGD yesterday no evidence or sources of bleeding. Passed 3 loose black colored BMs this morning. Denies abdominal pain. Afebrile. Objective - Vital Signs Vital signs: Vital Signs Temp 98.4 F 01/09/17 09:08 Pulse 100 01/09/17 09:08 Resp 18 01/09/17 09:08 BP 129/67 01/09/17 09:08 Pulse Ox 97 01/09/17 09:45 Intake & Output 01/08/17 01/09/17 01/09/17 18:59 06:59 18:59 Intake Total 820 120 Output Total 1500 4 Balance -680 -4 120 Weight 83.6 kg Intake: IV 100 Oral 720 120 Output: Urine 1300 Stool 200 Urine/Stool Mix 4 Other: Voiding Method Bedside Commode Bedside Commode Bedside Commode # Voids 1 1 - Exam General appearance: The patient is alert, oriented, in no acute distress. HET: Head is normocephalic and atraumatic. Pupils are equal and reactive. Oropharynx is clear without lesions. Neck: Supple without lymphadenopathy. Trachea midline. Heart: S1 S2. Regular rate and rhythm. Lungs: No crackles or wheezes are heard. Abdomen: Soft, nontender, nondistended with bowel sounds. No peritoneal signs. No palpable organomegaly or masses. Extremities: Normal skin color and turgor. No cyanosis, rash, ulceration, clubbing, or edema. Radial and pedal pulses are 2/4 bilaterally. Neurological: No focal deficits. Strength and sensation are grossly intact. - Labs CBC & Chem 7: 01/09/17 05:57 01/09/17 05:54 Labs: Abnormal Lab Results - Last 24 Hours (Table) 01/08/17 01/08/17 01/09/17 Range/Units 11:26 17:44 00:10 RBC 2.67 L 2.68 L 2.33 L (3.80-5.40) m/uL Hgb 7.8 L 8.0 L 7.2 L (11.4-16.0) gm/dL Hct 24.7 L 25.1 L 21.9 L (34.0-46.0) % RDW 18.6 H 19.3 H 20.1 H (11.5-15.5) % Myelocytes # (Manual) 0.06 H (0) k/uL Potassium (3.5-5.1) mmol/L Chloride (98-107) mmol/L Carbon Dioxide (22-30) mmol/L 01/09/17 01/09/17 Range/Units 05:54 05:57 RBC 2.36 L (3.80-5.40) m/uL Hgb 7.3 L (11.4-16.0) gm/dL Hct 22.3 L (34.0-46.0) % RDW 20.4 H (11.5-15.5) % Myelocytes # (Manual) (0) k/uL Potassium 3.2 L (3.5-5.1) mmol/L Chloride 113 H (98-107) mmol/L Carbon Dioxide 20 L (22-30) mmol/L Microbiology - Last 24 Hours (Table) 01/06/17 15:02 Stool Culture - Preliminary Stool 01/06/17 14:24 Blood Culture - Preliminary Blood No Growth after 48 hours Assessment and Plan (1) Melena Narrative/Plan: Possible small bowel source Current Visit: Yes Status: Acute Code(s): K92.1 - MELENA SNOMED Code(s): 6066803 (2) Acute blood loss anemia Current Visit: Yes Status: Acute Code(s): D62 - ACUTE POSTHEMORRHAGIC ANEMIA SNOMED Code(s): 769395610 (3) Status post knee surgery Current Visit: Yes Status: Acute Code(s): Z98.890 - OTHER SPECIFIED POSTPROCEDURAL STATES SNOMED Code(s): 238576239 (4) GI hemorrhage Narrative/Plan: active with melena this am Current Visit: Yes Status: Acute Code(s): K92.2 - GASTROINTESTINAL HEMORRHAGE, UNSPECIFIED SNOMED Code(s): 78542553 Plan: 1. Small bowel capsule endoscopy in am. 2. CBC monitoring. 3. IV Protonix. Assessment and plan of care discussed with Dr. Walker
[2017-01-09] MEDS ORDERED: Potassium Replacement Protocol 1 EACH MISC MISCELLANE PRN (10:25)
[2017-01-09] MEDS: HYDROcodone/APAP 5-325MG 1 EACH TAB PO PRN ×2 (10:42→23:10)
[2017-01-09] MEDS: POTASSIUM CHLORIDE ER 20 MEQ TAB.ER PO SCH ×4 (10:43→18:15)
--- NOTE | 2017-01-09 15:31 | P.PN ---
Subjective Progress Note Date: 01/09/17 Principal diagnosis: Diarrhea with dark stools 76-year-old female that was transferred here from [place] where she was admitted with symptoms of abdominal pain diarrhea and dark stools. Patient had blood loss anemia patient has been transfused 2 units of packed RBCs. At [place] her hemoglobin was [address] was consistent with colitis. Today patient reports continued episodes of diarrhea with dark stools. No cramping, Even though she thinks this less frequent today. No fever no chills Objective - Vital Signs Vital signs: Vital Signs Temp 97.9 F 01/09/17 12:17 Pulse 103 H 01/09/17 12:17 Resp 18 01/09/17 12:17 BP 125/83 01/09/17 12:17 Pulse Ox 96 01/09/17 12:17 Intake & Output 01/08/17 01/09/17 01/09/17 18:59 06:59 18:59 Intake Total 820 410 Output Total 1500 4 Balance -680 -4 410 Weight 83.6 kg Intake: IV 100 Intake, IV Titration 50 Amount Piperacillin-Tazobactam 3 50 .375 gm In Dextrose/Water 1 50ml.bag @ 12.5 mls/hr IVPB Q8HR [facility] Rx#: [id number] Oral 720 360 Output: Urine 1300 Stool 200 Urine/Stool Mix 4 Other: Voiding Method Bedside Commode Bedside Commode Bedside Commode # Voids 1 1 - Exam gen:alert and oriented lungs:clear to auscultation heart:s1s2 abdomen:soft and depressible,non tender to palpation ext:no edema - Labs CBC & Chem 7: 01/09/17 05:57 01/09/17 05:54 Labs: Abnormal Lab Results - Last 24 Hours (Table) 01/08/17 01/09/17 01/09/17 Range/Units 17:44 00:10 05:54 RBC 2.68 L 2.33 L (3.80-5.40) m/uL Hgb 8.0 L 7.2 L (11.4-16.0) gm/dL Hct 25.1 L 21.9 L (34.0-46.0) % RDW 19.3 H 20.1 H (11.5-15.5) % Potassium 3.2 L (3.5-5.1) mmol/L Chloride 113 H (98-107) mmol/L Carbon Dioxide 20 L (22-30) mmol/L 01/09/17 Range/Units 05:57 RBC 2.36 L (3.80-5.40) m/uL Hgb 7.3 L (11.4-16.0) gm/dL Hct 22.3 L (34.0-46.0) % RDW 20.4 H (11.5-15.5) % Potassium (3.5-5.1) mmol/L Chloride (98-107) mmol/L Carbon Dioxide (22-30) mmol/L Microbiology - Last 24 Hours (Table) 01/06/17 15:02 Stool Culture - Preliminary Stool 01/06/17 14:24 Blood Culture - Preliminary Blood No Growth after 48 hours Assessment and Plan (1) Colitis Narrative/Plan: EGD yesterday was negative for ulcers Plan for operative Endoscopy Tomorrow Patient has still dark stools hemoglobin stable Current Visit: Yes Status: Acute Code(s): K52.9 - NONINFECTIVE GASTROENTERITIS AND COLITIS, UNSPECIFIED SNOMED Code(s): 52992544 (2) Blood loss anemia Narrative/Plan: Hemoglobin 7.3 today seems to be stable We'll transfuse if hemoglobin less than 7 Current Visit: Yes Status: Acute Code(s): D50.0 - IRON DEFICIENCY ANEMIA SECONDARY TO BLOOD LOSS (CHRONIC) SNOMED Code(s): 398474287 (3) Hypertension Narrative/Plan: Blood pressure currently stable Verapamil triamterene hydrochlorothiazide and lisinopril are currently on hold Current Visit: Yes Status: Acute Code(s): I10 - ESSENTIAL (PRIMARY) HYPERTENSION SNOMED Code(s): 42744825 (4) Hyperlipidemia Current Visit: Yes Status: Acute Code(s): E78.5 - HYPERLIPIDEMIA, UNSPECIFIED SNOMED Code(s): 38636505 Plan: We'll continue to monitor H&H patient continues to have black stools patient become video capsule endoscopy tomorrow
[2017-01-09] MEDS ORDERED: MAGNESIUM CITRATE 296 ML BOTTLE PO ONE (17:00)
[2017-01-09 21:47] LABS: Anisocytosis Moderate; CHCM 31.9; HCT 25.9 % (34.0-46.0); HDW 3.36; HGB 8.6 gm/dL (11.4-16.0); Hypochromasia Slight; MCH 32.7 pg (25.0-35.0); MCHC 33.3 g/dL (31.0-37.0); MCV 98.1 fL (80.0-100.0); Macrocytosis Slight; Mean Platelet Volume 7.6; RBC 2.64 m/uL (3.80-5.40); RDW 20.5 % (11.5-15.5); WBC 7.2 k/uL (3.8-10.6)
[2017-01-10] MEDS: POTASSIUM CHLORIDE ER 20 MEQ TAB.ER PO SCH ×2 (00:39→01:36)
[2017-01-10 06:29] LABS: Anion Gap 9 mmol/L; Blood Urea Nitrogen 4 mg/dL (7-17); Calcium 9.3 mg/dL (8.4-10.2); Carbon Dioxide 19 mmol/L (22-30); Chloride 115 mmol/L (98-107); Glucose 95 mg/dL (74-99); Non-African American GFR(MDRD) 59 (>60 ml/min/1.73 sqM); Sodium 143 mmol/L (137-145)
[2017-01-10] MEDS ORDERED: SIMETHICONE 40 MG/0.6 ML DROPS 2,000 MG/30 ML BOTTLE PO ONE (07:30)
[2017-01-10] MEDS: PANTOPRAZOLE 40 MG/10 ML VIAL IV SCH (09:34)
--- NOTE | 2017-01-10 09:34 | P.PN ---
Subjective Progress Note Date: 01/10/17 Principal diagnosis: Diarrhea with dark stools 76-year-old female that was transferred here from [place] where she was admitted with symptoms of abdominal pain diarrhea and dark stools. Patient had blood loss anemia patient has been transfused 2 units of packed RBCs. At [place] her hemoglobin was [address] was consistent with colitis. Today patient reports continued episodes of diarrhea with dark stools. No cramping, Even though she thinks this less frequent today. No fever no chills, she had clear stools with no evidence of boold with the prep Objective - Vital Signs Vital signs: Vital Signs Temp 97.8 F 01/10/17 04:00 Pulse 96 01/10/17 04:00 Resp 16 01/10/17 04:00 BP 121/71 01/10/17 04:00 Pulse Ox 97 01/10/17 04:00 Intake & Output 01/09/17 01/10/17 01/10/17 18:59 06:59 18:59 Intake Total 650 0 Output Total 1 107 200 Balance 649 -107 -200 Weight 82.4 kg Intake: Intake, IV Titration 50 Amount Piperacillin-Tazobactam 3 50 .375 gm In Dextrose/Water 1 50ml.bag @ 12.5 mls/hr IVPB Q8HR [facility] Rx#: [id number] Oral 600 0 Output: Urine 1 200 Stool 100 Urine/Stool Mix 7 Other: Voiding Method Bedside Commode Bedside Commode - Exam gen:alert and oriented lungs:clear to auscultation heart:s1s2 abdomen:soft and depressible,non tender to palpation ext:no edema - Labs CBC & Chem 7: 01/09/17 21:15 01/10/17 05:40 Labs: Abnormal Lab Results - Last 24 Hours (Table) 01/09/17 01/09/17 01/09/17 Range/Units 16:05 21:15 22:57 RBC 2.64 L (3.80-5.40) m/uL Hgb 8.6 L (11.4-16.0) gm/dL Hct 25.9 L (34.0-46.0) % RDW 20.5 H (11.5-15.5) % Potassium 3.3 L 3.4 L (3.5-5.1) mmol/L Chloride (98-107) mmol/L Carbon Dioxide (22-30) mmol/L BUN (7-17) mg/dL 01/10/17 Range/Units 05:40 RBC (3.80-5.40) m/uL Hgb (11.4-16.0) gm/dL Hct (34.0-46.0) % RDW (11.5-15.5) % Potassium (3.5-5.1) mmol/L Chloride 115 H (98-107) mmol/L Carbon Dioxide 19 L (22-30) mmol/L BUN 4 L (7-17) mg/dL Microbiology - Last 24 Hours (Table) 01/06/17 15:02 Stool Culture - Final Stool 01/06/17 14:24 Blood Culture - Preliminary Blood No Growth after 72 hours Assessment and Plan (1) Colitis Narrative/Plan: EGD yesterday was negative for ulcers Plan for operative Endoscopy Tomorrow Patient has still dark stools hemoglobin stable Current Visit: Yes Status: Acute Code(s): K52.9 - NONINFECTIVE GASTROENTERITIS AND COLITIS, UNSPECIFIED SNOMED Code(s): 40813576 (2) Blood loss anemia Narrative/Plan: Hemoglobin today pending We'll transfuse if hemoglobin less than 7 Preoperative seems night and has done better now. Current Visit: Yes Status: Acute Code(s): D50.0 - IRON DEFICIENCY ANEMIA SECONDARY TO BLOOD LOSS (CHRONIC) SNOMED Code(s): 929682702 (3) Hypertension Narrative/Plan: Blood pressure currently stable Verapamil triamterene hydrochlorothiazide and lisinopril are currently on hold Current Visit: Yes Status: Acute Code(s): I10 - ESSENTIAL (PRIMARY) HYPERTENSION SNOMED Code(s): 29095216 (4) Hyperlipidemia Narrative/Plan: On Lipitor Current Visit: Yes Status: Acute Code(s): E78.5 - HYPERLIPIDEMIA, UNSPECIFIED SNOMED Code(s): 52909170 Plan: We will reevaluate this afternoon, and discussed with GI what are the discharge plans if hemoglobin stable. CBC still pending at this time.
[2017-01-10] MEDS: PIPERACILLIN-TAZOBACTAM 3.375 GM in DEXTROSE/WATER 1 50ML.BAG IVPB SCH ×3 (09:35→23:42)
[2017-01-10 10:48] LABS: Anisocytosis Slight; CH 29.9; CHCM 31.5; HCT 25.7 % (34.0-46.0); HDW 3.42; HGB 7.8 gm/dL (11.4-16.0); Hypochromasia Moderate; MCH 29.2 pg (25.0-35.0); MCHC 30.5 g/dL (31.0-37.0); MCV 95.9 fL (80.0-100.0); Macrocytosis Slight; Mean Platelet Volume 7.5; Poikilocytosis Slight; RBC 2.68 m/uL (3.80-5.40); RDW 19.3 % (11.5-15.5); WBC 5.8 k/uL (3.8-10.6)
--- NOTE | 2017-01-10 15:19 | P.PN ---
Subjective Progress Note Date: 01/10/17 Principal diagnosis: Gi bleed Admitted with GI bleed anemia melena. S/p EGD 2 days ago no evidence or sources of bleeding. Passed 3 loose black colored BMs yesterday morning no recurrence. Nonbloody loose diarrhea stool after lunch today. S/p capsule study today; results pending. Denies abdominal pain. Afebrile. Hgb 7.8. Objective - Vital Signs Vital signs: Vital Signs Temp 97.5 F L 01/10/17 09:35 Pulse 86 01/10/17 09:35 Resp 18 01/10/17 09:35 BP 153/95 01/10/17 09:35 Pulse Ox 98 01/10/17 09:35 Intake & Output 01/09/17 01/10/17 01/10/17 18:59 06:59 18:59 Intake Total 650 520 Output Total 1 107 400 Balance 649 -107 120 Weight 82.4 kg Intake: Intake, IV Titration 50 Amount Piperacillin-Tazobactam 3 50 .375 gm In Dextrose/Water 1 50ml.bag @ 12.5 mls/hr IVPB Q8HR [facility] Rx#: [id number] Oral 600 520 Output: Urine 1 400 Stool 100 Urine/Stool Mix 7 Other: Voiding Method Bedside Commode Bedside Commode Bedside Commode - Exam General appearance: The patient is alert, oriented, in no acute distress. HET: Head is normocephalic and atraumatic. Pupils are equal and reactive. Oropharynx is clear without lesions. Neck: Supple without lymphadenopathy. Trachea midline. Heart: S1 S2. Regular rate and rhythm. Lungs: No crackles or wheezes are heard. Abdomen: Soft, nontender, nondistended with bowel sounds. No peritoneal signs. No palpable organomegaly or masses. Extremities: Normal skin color and turgor. No cyanosis, rash, ulceration, clubbing, or edema. Radial and pedal pulses are 2/4 bilaterally. Neurological: No focal deficits. Strength and sensation are grossly intact. - Labs CBC & Chem 7: 01/10/17 05:40 01/10/17 05:40 Labs: Abnormal Lab Results - Last 24 Hours (Table) 01/09/17 01/09/17 01/09/17 Range/Units 16:05 21:15 22:57 RBC 2.64 L (3.80-5.40) m/uL Hgb 8.6 L (11.4-16.0) gm/dL Hct 25.9 L (34.0-46.0) % MCHC (31.0-37.0) g/dL RDW 20.5 H (11.5-15.5) % Potassium 3.3 L 3.4 L (3.5-5.1) mmol/L Chloride (98-107) mmol/L Carbon Dioxide (22-30) mmol/L BUN (7-17) mg/dL 01/10/17 01/10/17 Range/Units 05:40 05:40 RBC 2.68 L (3.80-5.40) m/uL Hgb 7.8 L (11.4-16.0) gm/dL Hct 25.7 L (34.0-46.0) % MCHC 30.5 L (31.0-37.0) g/dL RDW 19.3 H (11.5-15.5) % Potassium (3.5-5.1) mmol/L Chloride 115 H (98-107) mmol/L Carbon Dioxide 19 L (22-30) mmol/L BUN 4 L (7-17) mg/dL Microbiology - Last 24 Hours (Table) 01/06/17 15:02 Stool Culture - Final Stool 01/06/17 14:24 Blood Culture - Preliminary Blood No Growth after 72 hours Assessment and Plan (1) Melena Narrative/Plan: Possible small bowel source s/p capsule study result pending. Current Visit: Yes Status: Acute Code(s): K92.1 - MELENA SNOMED Code(s): 7073103 (2) Acute blood loss anemia Current Visit: Yes Status: Acute Code(s): D62 - ACUTE POSTHEMORRHAGIC ANEMIA SNOMED Code(s): 777495470 (3) Status post knee surgery Current Visit: Yes Status: Acute Code(s): Z98.890 - OTHER SPECIFIED POSTPROCEDURAL STATES SNOMED Code(s): 662544590 (4) GI hemorrhage Narrative/Plan: active with melena this am Current Visit: Yes Status: Acute Code(s): K92.2 - GASTROINTESTINAL HEMORRHAGE, UNSPECIFIED SNOMED Code(s): 67664703 Plan: 1. Await capsule results. Dr. Walker will evaluate. Check stool for C. Diff. 2. Full liquids. 3. Possible endoscopy based on capsule findings. 4. CBC monitoring. Assessment and plan a care discussed with Dr. Walker.
[2017-01-10] MEDS: HYDROcodone/APAP 5-325MG 1 EACH TAB PO PRN ×2 (15:59→21:50)
[2017-01-11] MEDS: ACETAMINOPHEN TAB 325 MG TAB PO PRN ×3 (05:06→20:09)
[2017-01-11 07:05] LABS: Anion Gap 8 mmol/L; Blood Urea Nitrogen 4 mg/dL (7-17); Calcium 9.4 mg/dL (8.4-10.2); Carbon Dioxide 21 mmol/L (22-30); Chloride 111 mmol/L (98-107); Glucose 105 mg/dL (74-99); Non-African American GFR(MDRD) >60 (>60 ml/min/1.73 sqM); Potassium 3.9 mmol/L (3.5-5.1); Sodium 140 mmol/L (137-145)
[2017-01-11 07:32] LABS: Anisocytosis Slight; CH 30.1; CHCM 31.8; HCT 25.3 % (34.0-46.0); HDW 3.45; HGB 7.9 gm/dL (11.4-16.0); Hypochromasia Slight; MCHC 31.3 g/dL (31.0-37.0); MCV 95.8 fL (80.0-100.0); Macrocytosis Slight; Mean Platelet Volume 6.7; Poikilocytosis Slight; RBC 2.64 m/uL (3.80-5.40); RDW 18.8 % (11.5-15.5); WBC 5.9 k/uL (3.8-10.6)
[2017-01-11] MEDS: PIPERACILLIN-TAZOBACTAM 3.375 GM in DEXTROSE/WATER 1 50ML.BAG IVPB SCH ×2 (08:47→15:48)
[2017-01-11] MEDS: PANTOPRAZOLE 40 MG/10 ML VIAL IV SCH (08:47)
--- NOTE | 2017-01-11 09:30 | P.PN ---
Subjective Progress Note Date: 01/11/17 Principal diagnosis: Diarrhea with dark stools 76-year-old female that was transferred here from [place] where she was admitted with symptoms of abdominal pain diarrhea and dark stools. Patient had blood loss anemia patient has been transfused 2 units of packed RBCs. At [place] her hemoglobin was [address] was consistent with colitis. No cramping, Even though she thinks this less frequent today. No fever no chills, she is still having loose stools" for daily. Becoming more clear now. Objective - Vital Signs Vital signs: Vital Signs Temp 97.4 F L 01/11/17 08:00 Pulse 98 01/11/17 08:00 Resp 17 01/11/17 08:00 BP 165/79 01/11/17 08:00 Pulse Ox 98 01/11/17 08:00 Intake & Output 01/10/17 01/11/17 01/11/17 18:59 06:59 18:59 Intake Total 1000 160 480 Output Total 400 1402 Balance 600 -1242 480 Weight 81.8 kg Intake: Intake, IV Titration 160 Amount Sodium Chloride 0.9% 1, 160 000 ml @ 75 mls/hr IV . [id number] UZIEL Rx#:[id number] Oral 1000 480 Output: Urine 400 1400 Urine/Stool Mix 2 Other: Voiding Method Bedside Commode Bedside Commode # Voids 1 1 # Bowel Movements 1 - Exam gen:alert and oriented lungs:clear to auscultation heart:s1s2 abdomen:soft and depressible,non tender to palpation ext:no edema - Labs CBC & Chem 7: 01/12/17 07:40 01/11/17 06:23 Labs: Abnormal Lab Results - Last 24 Hours (Table) 01/10/17 01/11/17 01/11/17 Range/Units 05:40 06:23 06:23 RBC 2.68 L 2.64 L (3.80-5.40) m/uL Hgb 7.8 L 7.9 L (11.4-16.0) gm/dL Hct 25.7 L 25.3 L (34.0-46.0) % MCHC 30.5 L (31.0-37.0) g/dL RDW 19.3 H 18.8 H (11.5-15.5) % Chloride 111 H (98-107) mmol/L Carbon Dioxide 21 L (22-30) mmol/L BUN 4 L (7-17) mg/dL Glucose 105 H (74-99) mg/dL Microbiology - Last 24 Hours (Table) 01/06/17 14:24 Blood Culture - Preliminary Blood No Growth after 96 hours Assessment and Plan (1) Colitis Narrative/Plan: EGD was negative for ulcers Patient has still has diarrhea. hemoglobin stable s/p video capsule endoscopy Current Visit: Yes Status: Acute Code(s): K52.9 - NONINFECTIVE GASTROENTERITIS AND COLITIS, UNSPECIFIED SNOMED Code(s): 92629931 (2) Blood loss anemia Narrative/Plan: Hemoglobin stable patient says bleeding improved. Current Visit: Yes Status: Acute Code(s): D50.0 - IRON DEFICIENCY ANEMIA SECONDARY TO BLOOD LOSS (CHRONIC) SNOMED Code(s): 804622857 (3) Hypertension Narrative/Plan: Blood pressure currently stable Verapamil triamterene hydrochlorothiazide and lisinopril are currently on hold Current Visit: Yes Status: Acute Code(s): I10 - ESSENTIAL (PRIMARY) HYPERTENSION SNOMED Code(s): 48403337 (4) Hyperlipidemia Narrative/Plan: On Lipitor Current Visit: Yes Status: Acute Code(s): E78.5 - HYPERLIPIDEMIA, UNSPECIFIED SNOMED Code(s): 05435218 (5) Diarrhea Narrative/Plan: will check cdiff Current Visit: Yes Status: Acute Code(s): R19.7 - DIARRHEA, UNSPECIFIED SNOMED Code(s): 08279175 Plan: We will reevaluate this afternoon, and discussed with GI what are the discharge plans if hemoglobin stable.
[2017-01-11] MEDS ORDERED: MORPHINE SULFATE 10 MG/ML SYRINGE IV PRN (13:50)
[2017-01-11 15:05] VITALS: BMI 33.0
[2017-01-11] MEDS: LISINOPRIL 20 MG TAB PO SCH (16:30)
[2017-01-12] MEDS: PIPERACILLIN-TAZOBACTAM 3.375 GM in DEXTROSE/WATER 1 50ML.BAG IVPB SCH ×2 (00:31→08:10)
[2017-01-12] MEDS: ACETAMINOPHEN TAB 325 MG TAB PO PRN ×3 (03:32→21:42)
[2017-01-12] MEDS: LISINOPRIL 20 MG TAB PO SCH (07:43)
[2017-01-12] MEDS: PANTOPRAZOLE 40 MG/10 ML VIAL IV SCH (07:44)
[2017-01-12 08:17] LABS: Anisocytosis Slight; CH 29.8; CHCM 30.9; HCT 27.9 % (34.0-46.0); HDW 3.46; HGB 8.5 gm/dL (11.4-16.0); Hypochromasia Moderate; MCH 29.8 pg (25.0-35.0); MCHC 30.5 g/dL (31.0-37.0); MCV 97.5 fL (80.0-100.0); Macrocytosis Slight; Mean Platelet Volume 6.8; Poikilocytosis Slight; RBC 2.87 m/uL (3.80-5.40); RDW 18.2 % (11.5-15.5); WBC 5.4 k/uL (3.8-10.6)
--- NOTE | 2017-01-12 09:54 | P.PN ---
Subjective Progress Note Date: 01/12/17 Principal diagnosis: Diarrhea with dark stools 76-year-old female that was transferred here from [place] where she was admitted with symptoms of abdominal pain diarrhea and dark stools. Patient had blood loss anemia patient has been transfused 2 units of packed RBCs. At [place] her hemoglobin was [address] was consistent with colitis. Patient is her diarrhea is much worse today. Having multiple episodes throughout the night. No cramping, Even though she thinks this less frequent today. No fever no chills, Becoming more clear now. Objective - Vital Signs Vital signs: Vital Signs Temp 97.1 F L 01/12/17 07:00 Pulse 90 01/12/17 07:00 Resp 18 01/12/17 07:00 BP 141/76 01/12/17 07:00 Pulse Ox 96 01/12/17 07:00 Intake & Output 01/11/17 01/12/17 01/12/17 18:59 06:59 18:59 Intake Total 1080 700 240 Output Total 500 Balance 580 700 240 Weight 81.8 kg Intake: Oral 1080 700 240 Output: Urine 500 Other: Voiding Method Toilet # Voids 1 3 2 # Bowel Movements 1 3 1 - Exam gen:alert and oriented lungs:clear to auscultation heart:s1s2 abdomen:soft and depressible,non tender to palpation ext:no edema - Labs CBC & Chem 7: 01/12/17 07:40 01/11/17 06:23 Labs: Abnormal Lab Results - Last 24 Hours (Table) 01/12/17 Range/Units 07:40 RBC 2.87 L (3.80-5.40) m/uL Hgb 8.5 L (11.4-16.0) gm/dL Hct 27.9 L (34.0-46.0) % MCHC 30.5 L (31.0-37.0) g/dL RDW 18.2 H (11.5-15.5) % Microbiology - Last 24 Hours (Table) 01/06/17 14:24 Blood Culture - Preliminary Blood No Growth after 120 hours 01/11/17 05:25 Stool Culture - Preliminary Stool Assessment and Plan (1) Diarrhea Narrative/Plan: Much worse today. C. diff negative We'll DC the IV Zosyn Await further GI input Current Visit: Yes Status: Acute Code(s): R19.7 - DIARRHEA, UNSPECIFIED SNOMED Code(s): 56119972 (2) Colitis Current Visit: Yes Status: Acute Code(s): K52.9 - NONINFECTIVE GASTROENTERITIS AND COLITIS, UNSPECIFIED SNOMED Code(s): 18249285 (3) Blood loss anemia Narrative/Plan: Hemoglobin stable no further bleeding. Current Visit: Yes Status: Acute Code(s): D50.0 - IRON DEFICIENCY ANEMIA SECONDARY TO BLOOD LOSS (CHRONIC) SNOMED Code(s): 141872244 (4) Hypertension Narrative/Plan: Blood pressure currently stable Currently on lisinopril Current Visit: Yes Status: Acute Code(s): I10 - ESSENTIAL (PRIMARY) HYPERTENSION SNOMED Code(s): 33821332 (5) Hyperlipidemia Narrative/Plan: On Lipitor Current Visit: Yes Status: Acute Code(s): E78.5 - HYPERLIPIDEMIA, UNSPECIFIED SNOMED Code(s): 82318019 Plan: We'll await input from Dr. bentley. Her hemoglobin is stable strongly results with a video capsule endoscopy. We'll see if Dr. Fraga has any other input on the patient's diarrhea. But we will hold IV antibiotics.
[2017-01-12 14:41] LABS: Cryptosporidium parvum Not detected (Not detected); Isospora belli Not detected (Not detected); Microsporidium Not detected (Not detected); Routine Ova and Parasites Not detected
[2017-01-13] MEDS: LISINOPRIL 20 MG TAB PO SCH (07:46)
[2017-01-13] MEDS: PANTOPRAZOLE 40 MG/10 ML VIAL IV SCH (07:46)
[2017-01-13] MEDS: ACETAMINOPHEN TAB 325 MG TAB PO PRN ×3 (07:47→20:22)
[2017-01-13] MEDS ORDERED: LOPERAMIDE 2 MG CAP PO STA (13:34)
[2017-01-13] MEDS ORDERED: LOPERAMIDE 2 MG CAP PO PRN (13:34)
--- NOTE | 2017-01-13 14:06 | P.PN ---
Subjective Progress Note Date: 01/13/17 Principal diagnosis: Diarrhea with dark stools 76-year-old female that was transferred here from [place] where she was admitted with symptoms of abdominal pain diarrhea and dark stools. Patient had blood loss anemia patient has been transfused 2 units of packed RBCs. At [place] her hemoglobin was [address] was consistent with colitis. Patient is her diarrhea is better today. Less frequent No cramping, Even though she thinks this less frequent today. No fever no chills, Becoming more clear now. Objective - Vital Signs Vital signs: Vital Signs Temp 97.5 F L 01/13/17 07:00 Pulse 89 01/13/17 07:00 Resp 20 01/13/17 07:00 BP 140/83 01/13/17 07:00 Pulse Ox 95 01/13/17 07:00 Intake & Output 01/12/17 01/13/17 01/13/17 18:59 06:59 18:59 Intake Total 240 875 Balance 240 875 Intake: Oral 240 875 Other: Voiding Method Toilet Toilet Toilet # Voids 2 2 2 # Bowel Movements 1 1 1 - Exam gen:alert and oriented lungs:clear to auscultation heart:s1s2 abdomen:soft and depressible,non tender to palpation ext:no edema - Labs CBC & Chem 7: 01/12/17 07:40 01/11/17 06:23 Labs: Microbiology - Last 24 Hours (Table) 01/11/17 05:25 Stool Culture - Preliminary Stool Cecily albicans 01/06/17 14:24 Blood Culture - Final Blood No Growth after 144 hours Assessment and Plan (1) Diarrhea Narrative/Plan: better today C. diff negative Await further GI input Current Visit: Yes Status: Acute Code(s): R19.7 - DIARRHEA, UNSPECIFIED SNOMED Code(s): 02909946 (2) Colitis Narrative/Plan: EGD was negative for ulcers Patient has still has diarrhea. hemoglobin stable s/p video capsule endoscopy cultures negtive Current Visit: Yes Status: Acute Code(s): K52.9 - NONINFECTIVE GASTROENTERITIS AND COLITIS, UNSPECIFIED SNOMED Code(s): 16510813 (3) Blood loss anemia Narrative/Plan: Hemoglobin stable no further bleeding. Current Visit: Yes Status: Acute Code(s): D50.0 - IRON DEFICIENCY ANEMIA SECONDARY TO BLOOD LOSS (CHRONIC) SNOMED Code(s): 416448789 (4) Hypertension Narrative/Plan: Blood pressure currently stable Currently on lisinopril Current Visit: Yes Status: Acute Code(s): I10 - ESSENTIAL (PRIMARY) HYPERTENSION SNOMED Code(s): 33604472 (5) Hyperlipidemia Narrative/Plan: On Lipitor Current Visit: Yes Status: Acute Code(s): E78.5 - HYPERLIPIDEMIA, UNSPECIFIED SNOMED Code(s): 60758968 Plan: Discussed with Dr. gamez. We'll give patient Imodium if patient isn't better to go home. She will be called by Dr. Andres to be informed about the results of her video capsule endoscopy. We'll re-eval in the afternoon and see how patient is doing and see how she feels about going home. if diarrhea better she can go.
[2017-01-14] MEDS: ACETAMINOPHEN TAB 325 MG TAB PO PRN ×2 (04:31→10:57)
[2017-01-14] MEDS: LISINOPRIL 20 MG TAB PO SCH (07:45)
[2017-01-14] MEDS: PANTOPRAZOLE 40 MG/10 ML VIAL IV SCH (07:45)
[2017-01-14 07:46] LABS: CH 30.4; CHCM 31.6; HCT 28.9 % (34.0-46.0); HDW 3.41; HGB 8.8 gm/dL (11.4-16.0); MCH 29.7 pg (25.0-35.0); MCHC 30.6 g/dL (31.0-37.0); MCV 97.2 fL (80.0-100.0); RBC 2.98 m/uL (3.80-5.40); RDW 18.1 % (11.5-15.5); WBC 6.3 k/uL (3.8-10.6)
[2017-01-14 07:47] LABS: Anisocytosis Slight; Hypochromasia Moderate; Macrocytosis Slight; Mean Platelet Volume 7.3; Poikilocytosis Slight
[2017-01-14] MEDS: LOPERAMIDE 2 MG CAP PO SCH ×2 (12:44→15:40)
--- NOTE | 2017-01-14 14:08 | PN ---
PROGRESS NOTE The patient is a 77-year-old pleasant white female admitted to the hospital with abdominal pain, abdominal bloating, lightheadedness and some intermittent dark colored stools and diarrhea for the last one month duration. Her symptoms started a few days after she was started on Coumadin following a knee surgery. She had a CT of the abdomen done at [facility] that shows some thickening of the transverse colon. She had an EGD done by Dr. Walker, which was unremarkable. Subsequently, she did have a small bowel capsule endoscopy done 3 days ago and that was completely within normal limits with no active bleeding. In the meantime, the patient was having diarrhea. Stool studies for C diff were negative. She was started on Imodium 1 tablet twice daily and her diarrhea is much better today. No further episodes of dark-colored stools. PHYSICAL EXAMINATION: She appears comfortable in no apparent distress. VITAL SIGNS: Stable. Blood pressure is 118/63, pulse is 64, temperature 98.1. HEENT examination unremarkable. Conjunctivae pink. Sclerae anicteric. Oral cavity no lesions. Neck no jugular venous distention or lymph node enlargement. Chest clear to auscultation. HEART: Regular rate and rhythm. ABDOMEN: Soft. Bowel sounds are positive. No organomegaly. Extremities no pedal edema. Skin no rashes. NEUROLOGIC: Alert, oriented times three. No focal deficits. LABS: From today, hemoglobin is 8.8, WBC 6.3, platelets are normal. IMPRESSION: This is a lady who presents to the hospital with abdominal pain and abdominal bloating, diarrhea with dark colored stool for the last one month duration. She had an EGD by Dr. Walker on January 08, which showed a small hiatal hernia and mild reflux esophagitis. Subsequently, she did have a small bowel capsule endoscopy done, which was just read by me today and there was no evidence of any small bowel pathology or active small-bowel bleeding noted. In the mean time the patient continued to have diarrhea. She was started on Imodium 1 tab twice daily and diarrhea is much improved. RECOMMENDATION: 1. I discussed with the patient the small bowel capsule endoscopy findings that were completely normal. 2. Since she is doing better on the Imodium 1 tablet twice daily I advised that she can continue the same. 3. She will follow up with Dr. Walker on outpatient basis in 1-2 weeks following discharge from the hospital. MMODL / IJN: [id number] /
--- NOTE | 2017-01-14 14:45 | P.DS ---
Providers Date of admission: 01/06/17 14:36 Attending physician: Timmy Russell MD Consults: 01/06/17 14:37 Consult Physician Urgent Consulting Provider: Bay Walker Consult Reason/Comments: gi hemorrhage Do you want consulting provider notified?: Yes Primary care physician: Nora Faust - Discharge Diagnosis(es) (1) GI hemorrhage Current Visit: Yes Status: Acute (2) Colitis Current Visit: Yes Status: Acute (3) Acute blood loss anemia Current Visit: Yes Status: Acute (4) Melena Current Visit: Yes Status: Acute (5) Diarrhea Current Visit: Yes Status: Acute Hospital Course: The patient is a 77-year-old female that was transferred here from [facility] and admitted with occult GI bleed, acute blood loss anemia after presenting with melena and diarrhea, she presented with a hemoglobin of 7.0 she was typed and crossed and transfused a total of 3 units of packed RBCs, she an initial unit of packed RBCs from transferring facility and a total of 2 units while hospitalized here at [facility]. CT abdomen and pelvis from transferring facility was suggestive of a possible mild colitis, the patient was started on empiric IV antibiotics with Zosyn pending workup with C. diff stool cultures, ova and parasites, studies which all remained negative. GI Dr. Joaquin was consulted and EGD performed was normal and not suggestive of a upper GI cause of her bleed, subsequently she had a capsule endoscopy performed which was reportedly normal per Dr. Joaquin. The patient continued to have ongoing diarrhea and was subsequently started on scheduled doses of Imodium with some improvement of her diarrhea. Her hemoglobin continued to remain stable with noted resolution of her melena and was approximately 8.8 g on discharge. This discharge process took approximately 45 minutes. Pertinent Studies: Capsule endoscopy reportedly normal Patient Condition at Discharge: Stable Plan - Discharge Summary Discharge Rx Participant: Yes New Discharge Prescriptions: New Loperamide [Imodium] 2 mg PO QID #120 cap Continue Omeprazole 20 mg PO DAILY Multivitamins, Thera [Multivitamin (formulary)] 1 tab PO DAILY HYDROcodone/APAP 5-325MG [[place] 5-325] 1 tab PO Q6H PRN PRN Reason: Pain Glucosamine/Chondr [place] A Sod [Osteo Bi-Flex Caplet] 1 tab PO DAILY Cetirizine HCl [Zyrtec] 10 mg PO HS Verapamil HCl [Verelan] 360 mg PO DAILY Triamterene/Hydrochlorothiazid [Triamterene-Hctz 37.5-25 mg Tb] 1 tab PO DAILY Lisinopril [Zestril] 20 mg PO DAILY Atorvastatin [Lipitor] 20 mg PO HS Discharge Medication List Atorvastatin [Lipitor] 20 mg PO HS 01/06/17 [History] Cetirizine HCl [Zyrtec] 10 mg PO HS 01/06/17 [History] Glucosamine/Chondr [place] A Sod [Osteo Bi-Flex Caplet] 1 tab PO DAILY 01/06/17 [ History] HYDROcodone/APAP 5-325MG [[place] 5-325] 1 tab PO Q6H PRN 01/06/17 [History] Lisinopril [Zestril] 20 mg PO DAILY 01/06/17 [History] Multivitamins, Thera [Multivitamin (formulary)] 1 tab PO DAILY 01/06/17 [History ] Omeprazole 20 mg PO DAILY 01/06/17 [History] Triamterene/Hydrochlorothiazid [Triamterene-Hctz 37.5-25 mg Tb] 1 tab PO DAILY 01/06/17 [History] Verapamil HCl [Verelan] 360 mg PO DAILY 01/06/17 [History] Loperamide [Imodium] 2 mg PO QID #120 cap 01/14/17 [Rx] Follow up Appointment(s)/Referral(s): Bay Walker MD [STAFF PHYSICIAN] - 2 Weeks Nonstaff,Physician [REFERRING] - 1-2 days Patient Instructions/Handouts: Gastrointestinal Bleeding (DC) Discharge Disposition: HOME SELF-CARE
[2017-01-14 14:51] VITALS: BP 111/65; PULSE 108; RESP 16; TEMP 98.7
== END 2017-01-14 16:58 | disposition home or self-care (01) | DRG 378 ==
LOC: EC 13:42 → 6SEL 14:36 → 4MS4W 01-11 19:40
PROVIDERS: ADMIT Family Medicine; ATTEND Family Medicine
PROC: 30233N1 Transfusion of Nonautologous Red Blood Cells into Peripheral Vein, Percutaneous Approach (ICD-10-PCS; 2017-01-06)
PROC: 0DB68ZX Excision of Stomach, Via Natural or Artificial Opening Endoscopic, Diagnostic (ICD-10-PCS; principal; 2017-01-08 07:30)
DX: K92.2 Gastrointestinal hemorrhage, unspecified (principal); D62 Acute posthemorrhagic anemia; I10 Essential (primary) hypertension; E78.5 Hyperlipidemia, unspecified; E87.6 Hypokalemia; K21.0 Gastro-esophageal reflux disease with esophagitis; K29.60 Other gastritis without bleeding; K44.9 Diaphragmatic hernia without obstruction or gangrene; K52.9 Noninfective gastroenteritis and colitis, unspecified; Z79.899 Other long term (current) drug therapy; Z96.651 Presence of right artificial knee joint; Z82.49 Family history of ischemic heart disease and other diseases of the circulatory system
CPT/HCPCS: 36415; 43239; 71020; 80048; 80053; 80158; 81003; 83605; 84132; 85025; 85027; 85610; 85730; 86850; 86900; 86901; 86920; 87040; 87045; 87046; 87086; 87177; 87207; 87209; 87324; 87329; 88305; 88342; 89055; 91110; 93005; 96365; 96375; 99291